=== PATIENT | male | born 1980 | race Caucasian/White ===

== ENCOUNTER 2019-02-04 01:32 | Emergency (ER) | payer SELFPAY ==
[~2019-02-04] VITALS: Ht 190.5 cm; Wt 90.7 kg
[2019-02-04 01:44] VITALS: BP 132/98
--- NOTE | 2019-02-04 01:52 | PHYS DOC ---
Past History Past Medical History: No Pertinent History Past Surgical History: No Surgical History Alcohol Use: Heavy Drug Use: None Adult General Chief Complaint Chief Complaint: [facility] HPI 38-year-old male presents with right clavicle pain and deformity. The patient states that he fell 2 days ago and now has a deformity on the right side. He admits that he has broken the spine in the past, but that it is healed. He admits that when he fell he had been drinking and does not really remember exactly what happened. He is not sure what he fell against. Patient also has pamela e conjunctival hemorrhage of the left eye and a black eye. He believes that he hit the upper outer portion of his eye on a piece of wood from the same fall. He denies assault. He walked to the emergency room from another location. He denies visual disturbance. He denies headache. He has no other complaints. Review of Systems Review of Systems Constitutional: Denies fever or chills [] Eyes: Denies change in visual acuity, redness, or eye pain [] HENT: Denies nasal congestion or sore throat [] Respiratory: Denies cough or shortness of breath [] Cardiovascular: No additional information not addressed in HPI [] GI: Denies abdominal pain, nausea, vomiting, bloody stools or diarrhea [] : Denies dysuria or hematuria [] Musculoskeletal: Right clavicle pain and deformity [] Integument: Denies rash or skin lesions [] Neurologic: Denies headache, focal weakness or sensory changes [] Endocrine: Denies polyuria or polydipsia [] All other systems were reviewed and found to be within normal limits, except as documented in this note. Allergies Allergies Allergies Coded Allergies Type Severity Reaction Last Updated Verified No Known Drug Allergies 01/01/15 No Physical Exam Physical Exam Constitutional: Well developed, well nourished, no acute distress, non-toxic appearance. [] HENT: Normocephalic, bilateral external ears normal, oropharynx moist, no oral exudates, nose normal. [] Eyes: PERRLA, EOMI, conjunctiva hemorrhage left eye with periorbital ecchymosis, no discharge. [] Neck: Normal range of motion, no tenderness, supple, no stridor. [] Cardiovascular:Heart rate regular rhythm, no murmur [] Lungs & Thorax: Bilateral breath sounds clear to auscultation. Prominence and obvious deformity of the right clavicle. [] Abdomen: Bowel sounds normal, soft, no tenderness, no masses, no pulsatile masses. [] Skin: Warm, dry, no erythema, no rash. [] Back: No tenderness, no CVA tenderness. [] Extremities: No tenderness, no cyanosis, no clubbing, ROM intact, no edema. [] Neurologic: Alert and oriented X 3, normal motor function, normal sensory function, no focal deficits noted. [] Psychologic: Affect normal, judgement normal, mood normal. [] Current Patient Data Vital Signs Vital Signs Date Time Temp Pulse Resp B/P (MAP) Pulse Ox O2 Delivery O2 Flow Rate FiO2 02/04/19 01:44 98.3 118 20 95 Room Air EKG EKG [] Radiology/Procedures Radiology/Procedures [] Impressions: Facial bones 3 views. HISTORY: Fall, bruising and swelling around left eye 3 views were taken of the facial bones. There is a calcific density in the frontal sinus on the right possible osteoma. Frontal sinuses are otherwise clear. Maxillary and ethmoid sinuses appear clear. There is a possible fracture the zygomatic arch on the left. I do not see other evidence of a facial or orbital fracture. Nasal bone appears intact on the lateral view. IMPRESSION: 1. 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 2. Possible fracture left zygomatic arch. 3. No other facial fracture noted. Electronically signed by: Bolivar Pratt MD (02/04/2019 2:27 AM) [facility] DICTATED AND SIGNED BY: BOLIVAR PRATT MD DATE: 02/04/19226 CC: ARNIE ALTAMIRANO DO; PCP,NO ~ Right clavicle 2 views. HISTORY: Fall 2 days ago, deformity 2 views were taken of the right clavicle. There is a fracture the mid to distal clavicle. There is however callus formation in the soft tissues suggesting a subacute fracture. An acute fracture superimposed on a subacute fracture is possible. Clavicle was normal on old study from December 2014. IMPRESSION: 1. Fracture right clavicle. Electronically signed by: Bolivar Pratt MD (02/04/2019 2:24 AM) [facility] DICTATED AND SIGNED BY: BOLIVAR PRATT MD DATE: 02/04/19223 CC: ARNIE ALTAMIRANO DO; PCP,NO ~ Course & Med Decision Making Course & Med Decision Making Pertinent Labs and Imaging studies reviewed. (See chart for details) The patient does have a right clavicle fracture, but it appears to be possibly subacute. See official read for more details. The patient also has a possible left zygomatic arch fracture. This does not appear to be grossly displaced. No other facial fracture was identified. Again see official report for more details. We'll place the patient in a simple sling and I will give him referral for orthopedics. The patient has also requested information for addiction counseling for his alcohol consumption. We will provide him with some information. He is stable for discharge at this time. [] Dragon Disclaimer Dragon Disclaimer This electronic medical record was generated, in whole or in part, using a voice recognition dictation system. Departure Departure: Impression: Primary Impression: Closed right clavicular fracture Additional Impressions: Zygomatic arch fracture Alcoholism /alcohol abuse Disposition: HOME, SELF-CARE Condition: STABLE Referrals: PCP,NO (PCP) Patient Instructions: Clavicle Fracture (Distal End) with [facility] Additional Instructions: Please follow-up with [facility] to discuss treatment for your clavicle fracture. You can call them at [phone] to make an appointment. Problem Qualifiers Primary Impression: Closed right clavicular fracture Encounter type: initial encounter Clavicle location: lateral end Fracture alignment: nondisplaced Qualified Codes: S42.034A - Nondisplaced fracture of lateral end of right clavicle, initial encounter for closed fracture Additional Impressions: Zygomatic arch fracture Encounter type: initial encounter Fracture type: closed Laterality: left Qualified Codes: S02.40FA - Zygomatic fracture, left side, initial encounter for closed fracture ARNIE ALTAMIRANO DO February 04, 2019 01:52
--- NOTE | 2019-02-04 02:27 | RAD ---
Right clavicle 2 views. HISTORY: Fall 2 days ago, deformity 2 views were taken of the right clavicle. There is a fracture the mid to distal clavicle. There is however callus formation in the soft tissues suggesting a subacute fracture. An acute fracture superimposed on a subacute fracture is possible. Clavicle was normal on old study from December 2014. IMPRESSION: 1. Fracture right clavicle. Electronically signed by: Silverio Doyle MD (02/04/2019 2:24 AM) [facility]
--- NOTE | 2019-02-04 02:30 | RAD ---
Facial bones 3 views. HISTORY: Fall, bruising and swelling around left eye 3 views were taken of the facial bones. There is a calcific density in the frontal sinus on the right possible osteoma. Frontal sinuses are otherwise clear. Maxillary and ethmoid sinuses appear clear. There is a possible fracture the zygomatic arch on the left. I do not see other evidence of a facial or orbital fracture. Nasal bone appears intact on the lateral view. IMPRESSION: 1. 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 2. Possible fracture left zygomatic arch. 3. No other facial fracture noted. Electronically signed by: Silverio Doyle MD (02/04/2019 2:27 AM) [facility]
[2019-02-04] MEDS ORDERED: IBUPROFEN 800 MG TABLET. PO ONE (03:11)
[2019-02-04] MEDS ORDERED: NAPROXEN 500 MG TABLET PO ONE (03:15)
== END 2019-02-04 03:16 | disposition home or self-care (01) ==
LOC: ER 01:32
DX: S42.034A Nondisplaced fracture of lateral end of right clavicle, initial encounter for closed fracture (principal); S02.40FA Zygomatic fracture, left side, initial encounter for closed fracture; F10.20 Alcohol dependence, uncomplicated; Y90.9 Presence of alcohol in blood, level not specified; W18.39XA Other fall on same level, initial encounter; Y93.89 Activity, other specified; Y92.89 Other specified places as the place of occurrence of the external cause; Y99.8 Other external cause status
CPT/HCPCS: 70150; 73000; 99284

== ENCOUNTER 2021-06-13 16:36 | Emergency (ER) | payer SELFPAY ==
[~2021-06-13] VITALS: Ht 190.5 cm; Wt 73.7 kg
[2021-06-13] MEDS ORDERED: IOHEXOL 300 MG/ML 75 ML VIAL. IV ONE (18:00)
--- NOTE | 2021-06-13 18:01 | PHYS DOC ---
Past History Past Medical History: No Pertinent History (MIRNA VILLANUEVA APRN) Past Surgical History: No Surgical History (MIRNA VILLANUEVA APRN) Alcohol Use: Heavy Additional Alcohol Information: pt states he drinks 4 beers daily Drug Use: None (MIRNA VILLANUEVA APRN) General Adult EDM: Chief Complaint: DIFFICULTY SWALLOWING HPI: HPI: Patient is a 40-year-old male who presents with difficulty swallowing. Patient states for the last 3 weeks he feels like he has a hard time swallowing food and feels like things are stuck in his throat. Patient also reports his voice has changed. "My voice feels deeper and scratchy". Denies fever,.denies recent illness. Patient is a smoker. Denies medical history. (MIRNA VILLANUEVA APRN) Review of Systems: Review of Systems: ROS At least 10 ROS systems have been reviewed and are negative except as documented in the HPI. General: Negative except as outlined in HPI above. Skin: Negative except as outlined in HPI above. HEENT: Negative except as outlined in HPI above. Neck: Negative except as outlined in HPI above. Respiratory: Negative except as outlined in HPI above.. Cardiovascular: Negative except as outlined in HPI above. Abdomen: Negative except as outlined in HPI above. : Negative except as outlined in HPI above. Back/MSK: Negative except as outlined in HPI above. Neuro: Negative except as outlined in HPI above. Psych: Negative except as outlined in HPI above. (MIRNA VILLANUEVA APRN) Allergies: Allergies: Allergies Coded Allergies Type Severity Reaction Last Updated Verified No Known Drug Allergies 01/01/15 No (MIRNA VILLANUEVA APRN) Physical Exam: PE: Constitutional: Well developed, well nourished, no acute distress, non-toxic appearance. [] HENT: Normocephalic, atraumatic, bilateral external ears normal, oropharynx moist, no oral exudates, oropharynx is red Eyes: PERRLA, EOMI, conjunctiva normal, no discharge. [] Neck: Normal range of motion, no tenderness, supple, no stridor. [] Cardiovascular:Heart rate regular rhythm, no murmur [] Lungs & Thorax: Bilateral breath sounds clear to auscultation [] Abdomen: Bowel sounds normal, soft, no tenderness, no masses, no pulsatile masses. [] Skin: Warm, dry, no erythema, no rash. [] Back: No tenderness, no CVA tenderness. [] Extremities: No tenderness, no cyanosis, no clubbing, ROM intact, no edema. [] Neurologic: Alert and oriented X 3, normal motor function, normal sensory function, no focal deficits noted. [] Psychologic: Affect normal, judgement normal, mood normal. [] (MIRNA VILLANUEVA APRN) Current Patient Data: Vital Signs: Vital Signs Date Time Temp Pulse Resp B/P (MAP) Pulse Ox O2 Delivery O2 Flow Rate FiO2 06/13/21 16:45 97.9 102 20 142/93 (109) 97 Room Air (MIRNA VILLANUEVA APRN) EKG: EKG: [] (MIRNA VILLANUEVA APRN) Radiology/Procedures: Radiology/Procedures: []Exam: CT neck with contrast INDICATION: Feels like something stuck in throat TECHNIQUE: Sequential axial images through the neck obtained following the administration of 75 mL of Omni 300 IV contrast. Sagittal and coronal reformatted images were reconstructed from the axial data and reviewed. Exposure: One or more of the following in the visualized dose reduction techniques were utilized for this examination: 1. Automated exposure control 2. Adjustment of the MA and/or KV according to patient size 3. Use of iterative of reconstructive technique Comparisons: Neck FINDINGS: Visualized intracranial structures are unremarkable. Visualized portions of the paranasal sinuses and mastoid air cells are pneumatized. Cervical vasculature is patent. Mild thickening of the epiglottis is noted. Nasopharynx, hypopharynx and larynx are unremarkable. No abnormal fluid collection identified. No enlarged lymph nodes. Thyroid and sacroiliac joints are within normal limits. Visualized lung apices are clear. No suspicious osseous lesions or acute fractures. IMPRESSION: Mild thickening of the epiglottis which is nonspecific can be infectious or inflammatory in etiology. Correlate with symptomatology. Recommend direct visualization if symptoms persist. Electronically signed by: Raisa Duarte MD (06/13/2021 6:30 PM) [facility] (MIRNA VILLANUEVA APRN) Heart Score: C/O Chest Pain: No Risk Factors: Risk Factors: DM, Current or recent (<one month) smoker, HTN, HLP, family history of CAD, obesity. Risk Scores: Score 0 - 3: 2.5% MACE over next 6 weeks - Discharge Home Score 4 - 6: 20.3% MACE over next 6 weeks - Admit for Clinical Observation Score 7 - 10: 72.7% MACE over next 6 weeks - Early Invasive Strategies (MIRNA VILLANUEVA APRN) Course & Med Decision Making: Course & Med Decision Making Pertinent Labs and Imaging studies reviewed. (See chart for details) [] 40-year-old male presents with difficulty swallowing for 3 weeks. Patient also noticed voice change. Patient is able to manage his own secretions. Upon physical exam oropharynx is red. No oral exudates noted. Patient is afebrile. Denies recent illness. Rapid strep ordered. CT of the neck shows mild thickening of the epiglottis which is nonspecific can be infectious or inflammatory in etiology. Patient is hemodynamically stable. No signs of respiratory distress. Symptoms started 3 weeks ago. Patient needs to follow-up with his PCP for further evaluation and management. Patient given dexamethasone to help with sore throat. Instructed him to go salt water gargl es. (MIRNA VILLANUEVA APRN) Dragon Disclaimer: Dragon Disclaimer: This electronic medical record was generated, in whole or in part, using a voice recognition dictation system. (MIRNA VILLANUEVA APRN) Attending Co-Sign The patient was seen and interviewed as well as examined at the bedside. The chart was reviewed. The case was discussed. Agree with the plan of care. (ARNIE ALTAMIRANO DO) Departure Departure: Impression: Primary Impression: Sore throat Disposition: 01 HOME / SELF CARE / HOMELESS Condition: STABLE Referrals: PCP,NO (PCP) Patient Instructions: Sore Throat, [id number] Additional Instructions: EMERGENCY DEPARTMENT GENERAL DISCHARGE INSTRUCTIONS Thank you for coming to [facility] (ED) today and trusting us with you care. We trust that you had a positivie experience in our Emergency Department. If you wish to speak to the department management, you may call the director at [phone]. YOUR FOLLOW UP INSTRUCTIONS ARE FOLLOWS: 1. Do you have a private Doctor? If you do not have a private doctor, please ask for a resource list of physicians or clinics that may be able to assist you with follow up care. 2. The Emergency Physician has interpreted your x-rays. The X-Ray specialist will also review them. If there is a change in the findings, you will be notified in 48 hours when at all possible. 3. A lab test or culture has been done, your results will be reviewed and you will be notified if you need a change in treatment. ADDITIONAL INSTRUCTIONS AND INFORMATION: 1. Your care today has been supervised by a physician who is specially trained in emergency care. Many problems require more than one evaluation for a complete diagnosis and treatment. We recommend that you schedule your follow up appointment as recommended to ensure complete treatment of you illness or injury. If you are unable to obtain follow up care and continue to have a problem, or if your condition worsens, we recommend that you return to the ED. 2. We are not able to safely determine your condition over the phone nor are we able to give sound medical advice over the phone. For these safety reasons, if you call for medical advice we will ask you to come to the ED for further evaluation. 3. If you have any questions regarding these discharge instructions please call the ED at [phone]. SAFETY INFORMATION: In the interest of safety, wellness, and injury prevention; we encourage you to wear your sealbelt, if you smoke; quite smoking, and we encourage family to use a prote ctive helmet for bicycling and other sporting events that present an increased risk for head injury. IF YOUR SYMPTOMS WORSEN OR NEW SYMPTOMS DEVELOP, OR YOU HAVE CONCERNS ABOUT YOUR CONDITION; OR IF YOUR CONDITION WORSENS WHILE YOU ARE WAITING FOR YOUR FOLLOW UP APPOINTMENT; EITHER CONTACT YOUR PRIMARY CARE DOCTOR, THE PHYSICIAN WHOSE NAME AND NUMBER YOU WERE GIVEN, OR RETURN TO THE ED IMMEDIATELY. MIRNA VILLANUEVA APRN Jun 13, 2021 18:00 ARNIE ALTAMIRANO DO Jun 14, 2021 06:21
--- NOTE | 2021-06-13 18:32 | RAD ---
Exam: CT neck with contrast INDICATION: Feels like something stuck in throat TECHNIQUE: Sequential axial images through the neck obtained following the administration of 75 mL of Omni 300 IV contrast. Sagittal and coronal reformatted images were reconstructed from the axial data and reviewed. Exposure: One or more of the following in the visualized dose reduction techniques were utilized for this examination: 1. Automated exposure control 2. Adjustment of the MA and/or KV according to patient size 3. Use of iterative of reconstructive technique Comparisons: Neck FINDINGS: Visualized intracranial structures are unremarkable. Visualized portions of the paranasal sinuses and mastoid air cells are pneumatized. Cervical vasculature is patent. Mild thickening of the epiglottis is noted. Nasopharynx, hypopharynx and larynx are unremarkable. No abnormal fluid collection identified. No enlarged lymph nodes. Thyroid and sacroiliac joints are within normal limits. Visualized lung apices are clear. No suspicious osseous lesions or acute fractures. IMPRESSION: Mild thickening of the epiglottis which is nonspecific can be infectious or inflammatory in etiology. Correlate with symptomatology. Recommend direct visualization if symptoms persist. Electronically signed by: Raisa Duarte MD (06/13/2021 6:30 PM) [facility]
[2021-06-13 18:43] LABS: CALCIUM 8.5 mg/dL (8.5-10.1); CREATININE 0.5 mg/dL (0.7-1.3); GFR 183.2
[2021-06-13 18:44] LABS: POTASSIUM 2.9 mmol/L (3.5-5.1)
[2021-06-13 18:48] LABS: BASO % 1 % (0-3); EOS % 0 % (0-3); HEMATOCRIT 42.4 % (39.0-53.0); HEMOGLOBIN 14.3 g/dL (13.0-17.5); LYMPH # 1.7 x10^3/uL (1.0-4.8); LYMPH % 28 % (24-48); MEAN CORPUSCULAR HEMOGLOBIN 34 pg (25-35); MEAN CORPUSCULAR HGB CONC 34 g/dL (31-37); MEAN CORPUSCULAR VOLUME 100 fL (79-100); MONO # 0.5 x10^3/uL (0.0-1.1); MONO % 8 % (0-9); NEUT # 3.9 x10^3uL (1.8-7.7); NEUT % 63 % (31-73); RED BLOOD COUNT 4.25 x10^6/uL (4.30-5.70); RED CELL DISTRIBUTION WIDTH 13.1 % (11.5-14.5); WHITE BLOOD COUNT 6.1 x10^3/uL (4.0-11.0)
[2021-06-13 20:12] LABS: PLATELET CLUMP PRESENT; PLT ESTIMATE ADEQUATE (ADEQUATE)
[2021-06-13 20:14] LABS: PLATELET COUNT 53 x10^3/uL (140-400)
[2021-06-13] MEDS ORDERED: DEXAMETHASONE SOD PHOS 10 MG/ML VIAL. IVP ONE (20:15)
[2021-06-13] MEDS ORDERED: POTASSIUM CHLORIDE 20 MEQ TABLET.ER. PO ONE (20:15)
[2021-06-13 20:41] VITALS: BP 139/97
== END 2021-06-13 20:45 | disposition home or self-care (01) ==
LOC: ER 16:36
DX: J02.9 Acute pharyngitis, unspecified (principal)
CPT/HCPCS: 36415; 70491; 80048; 85025; 87070; 87880; 96374; 99285; J1100; Q9967

== ENCOUNTER 2021-09-22 15:34 | Emergency (ER) | payer SELFPAY ==
[~2021-09-22] VITALS: Ht 190.5 cm; Wt 73.7 kg
[2021-09-22] MEDS ORDERED: IV NORMAL SALINE 1,000ML 1,000 ML IV ONE (17:00)
[2021-09-22] MEDS ORDERED: IOHEXOL 300 MG/ML 75 ML VIAL. IV ONE (17:15)
[2021-09-22] MEDS ORDERED: DEXAMETHASONE SOD PHOS 10 MG/ML VIAL. IVP ONE (17:15)
[2021-09-22] MEDS ORDERED: CONTRAST GIVEN. MC PRN (17:15)
[2021-09-22 17:38] LABS: BASO % 0 % (0-3); EOS % 0 % (0-3); HEMATOCRIT 40.7 % (39.0-53.0); HEMOGLOBIN 13.7 g/dL (13.0-17.5); LYMPH % 14 % (24-48); MEAN CORPUSCULAR HEMOGLOBIN 33 pg (25-35); MEAN CORPUSCULAR HGB CONC 34 g/dL (31-37); MEAN CORPUSCULAR VOLUME 97 fL (79-100); MONO # 0.7 x10^3/uL (0.0-1.1); MONO % 10 % (0-9); NEUT # 5.7 x10^3uL (1.8-7.7); NEUT % 76 % (31-73); PLATELET COUNT 106 x10^3/uL (140-400); RED BLOOD COUNT 4.18 x10^6/uL (4.30-5.70); WHITE BLOOD COUNT 7.5 x10^3/uL (4.0-11.0)
[2021-09-22 17:50] LABS: ALBUMIN/GLOBULIN RATIO 0.6 (1.0-1.7); CALCIUM 8.6 mg/dL (8.5-10.1); CREATININE 0.6 mg/dL (0.7-1.3); TOTAL PROTEIN 8.1 g/dL (6.4-8.2)
[2021-09-22 17:51] LABS: GFR 147.8; TOTAL BILIRUBIN 0.2 mg/dL (0.2-1.0)
[2021-09-22 17:55] LABS: POTASSIUM 2.7 mmol/L (3.5-5.1)
[2021-09-22] MEDS ORDERED: POTASSIUM CHLORIDE 20 MEQ TABLET.ER. PO ONE ×2 (18:00→19:00)
[2021-09-22 18:17] LABS: INFLUENZA A PATIENT NEGATIVE (NEGATIVE); INFLUENZA B PATIENT NEGATIVE (NEGATIVE)
--- NOTE | 2021-09-22 18:19 | RAD ---
Exam: CT neck with contrast INDICATION: Sore throat, swollen TECHNIQUE: Sequential axial images through the neck obtained following the administration of 75 mL of Omni 300 IV contrast. Sagittal and coronal reformatted images were reconstructed from the axial data and reviewed. Exposure: One or more of the following in the visualized dose reduction techniques were utilized for this examination: 1. Automated exposure control 2. Adjustment of the MA and/or KV according to patient size 3. Use of iterative of reconstructive technique Comparisons: 06/13/2021 FINDINGS: Visualized cranial structures are unremarkable. Visualized portions of paranasal sinuses and mastoid air cells are well-pneumatized. Cervical vasculature is patent. There is asymmetric irregular wall thickening involving the hypopharynx at the level of the vocal cor ds. The oropharynx and nasopharynx are unremarkable. Thyroid and salivary glands are within normal limits. No enlarged cervical lymph nodes are identified. No suspicious osseous lesions or acute fractures. IMPRESSION: Irregular wall thickening involving the hypopharynx. Findings could relate to pharyngitis. Direct vis ualization posttreatment to ensure no underlying neoplasm is recommended. Electronically signed by: Raisa Duarte MD (09/22/2021 6:17 PM) [facility]
--- NOTE | 2021-09-22 18:48 | PHYS DOC ---
Past History Past Medical History: No Pertinent History (JACY DAVIS SPARE FIXER) Past Surgical History: No Surgical History (JACY DAVIS SPARE FIXER) Alcohol Use: None Drug Use: None (JACY DAVIS APRN) Adult General Chief Complaint Chief Complaint: COUGH HPI HPI Patient is a 41-year-old male patient presenting to the ED today complaining of sore throat, cough and a headache intermittently for 90 days. Patient states his sore throat is getting worse. He states he is unvaccinated against COVID- 19. (JACY DAVIS SPARE FIXER) Review of Systems Review of Systems Constitutional: Denies fever or chills [] Eyes: Denies change in visual acuity, redness, or eye pain [] HENT: Reports sore throat Respiratory: Reports cough, denies shortness of breath [] Cardiovascular: No additional information not addressed in HPI [] GI: Denies abdominal pain, nausea, vomiting, bloody stools or diarrhea [] : Denies dysuria or hematuria [] Musculoskeletal: Denies back pain or joint pain [] Integument: Denies rash or skin lesions [] Neurologic: Reports headache, denies focal weakness or sensory changes [] All other systems were reviewed and found to be within normal limits, except as documented in this note. (JACY DAVIS SPARE FIXER) Current Medications Current Medications Current Medications Medications (Trade) Dose Ordered Sig/Moises Start Time Stop Time Status Last Admin Dose Admin Dexamethasone Sodium Phosphate (Decadron) 10 mg 1X ONCE 09/22/21 17:15 09/22/21 17:16 DC 09/22/21 17:28 10 MG Info (Do NOT chart on this entry -- for MONITORING) 1 each PRN DAILY PRN 09/22/21 17:15 09/24/21 17:14 Iohexol (Omnipaque 300 Mg/ml) 75 ml 1X ONCE 09/22/21 17:15 09/22/21 17:16 DC 09/22/21 17:23 75 ML Potassium Chloride (Klor-Con) 40 meq 1X ONCE 09/22/21 18:00 09/22/21 18:01 DC 09/22/21 18:00 40 MEQ Sodium Chloride 1,000 ml @ 1,000 mls/hr 1X ONCE 09/22/21 17:00 09/22/21 17:59 DC 09/22/21 17:28 1,000 MLS/HR (JACY DAVIS SPARE FIXER) Allergies Allergies Allergies Coded Allergies Type Severity Reaction Last Updated Verified No Known Drug Allergies 01/01/15 No (JACY DAVIS SPARE FIXER) Physical Exam Physical Exam Constitutional: Well developed, well nourished, no acute distress, non-toxic appearance. [] HENT: Normocephalic, atraumatic, bilateral external ears normal, oropharynx moist, no oral exudates, nose normal. [] Airway is open. Midline uvula, posterior pharynx with mild erythema. Eyes: PERRLA, EOMI, conjunctiva normal, no discharge. [] Neck: Normal range of motion, no tenderness, supple, no stridor. [] Cardiovascular:Heart rate regular rhythm, no murmur [] Lungs & Thorax: Bilateral breath sounds clear to auscultation [] Abdomen: Bowel sounds normal, soft, no tenderness, no masses, no pulsatile masses. [] Skin: Warm, dry, no erythema, no rash. [] Back: No tenderness, no CVA tenderness. [] Extremities: No tenderness, no cyanosis, no clubbing, ROM intact, no edema. [] Neurologic: Alert and oriented X 3, normal motor function, normal sensory function, no focal deficits noted. Cranial nerves II through XII intact Psychologic: Affect normal, judgement normal, mood normal. [] (JACY DAVIS SPARE FIXER) Current Patient Data Vital Signs Vital Signs Date Time Temp Pulse Resp B/P (MAP) Pulse Ox O2 Delivery O2 Flow Rate FiO2 09/22/21 18:11 98.5 103 16 140/80 (100) 97 Lab Results Laboratory Tests Test 09/22/21 17:20 09/22/21 17:30 White Blood Count 7.5 x10^3/uL (4.0-11.0) Red Blood Count 4.18 x10^6/uL (4.30-5.70) L Hemoglobin 13.7 g/dL (13.0-17.5) Hematocrit 40.7 % (39.0-53.0) Mean Corpuscular Volume 97 fL (79-100) Mean Corpuscular Hemoglobin 33 pg (25-35) Mean Corpuscular Hemoglobin Concent 34 g/dL (31-37) Red Cell Distribution Width 13.0 % (11.5-14.5) Platelet Count 106 x10^3/uL (140-400) L Neutrophils (%) (Auto) 76 % (31-73) H Lymphocytes (%) (Auto) 14 % (24-48) L Monocytes (%) (Auto) 10 % (0-9) H Eosinophils (%) (Auto) 0 % (0-3) Basophils (%) (Auto) 0 % (0-3) Neutrophils # (Auto) 5.7 x10^3uL (1.8-7.7) Lymphocytes # (Auto) 1.0 x10^3/uL (1.0-4.8) Monocytes # (Auto) 0.7 x10^3/uL (0.0-1.1) Eosinophils # (Auto) 0.0 x10^3/uL (0.0-0.7) Basophils # (Auto) 0.0 x10^3/uL (0.0-0.2) Sodium Level 139 mmol/L (136-145) Potassium Level 2.7 mmol/L (3.5-5.1) *L Chloride Level 100 mmol/L (98-107) Carbon Dioxide Level 28 mmol/L (21-32) Anion Gap 11 (6-14) Blood Urea Nitrogen 6 mg/dL (8-26) L Creatinine 0.6 mg/dL (0.7-1.3) L Estimated GFR (Cockcroft-Gault) 147.8 BUN/Creatinine Ratio 10 (6-20) Glucose Level 83 mg/dL (70-99) Calcium Level 8.6 mg/dL (8.5-10.1) Total Bilirubin 0.2 mg/dL (0.2-1.0) Aspartate Amino Transferase (AST) 113 U/L (15-37) H Alanine Aminotransferase (ALT) 58 U/L (16-63) Alkaline Phosphatase 60 U/L (46-116) Total Protein 8.1 g/dL (6.4-8.2) Albumin 3.0 g/dL (3.4-5.0) L Albumin/Globulin Ratio 0.6 (1.0-1.7) L Influenza Type A (Rapid) Negative (NEGATIVE) Influenza Type B (Rapid) Negative (NEGATIVE) (JACY DAVIS APRN) EKG EKG [] (JACY DAVIS APRN) Radiology/Procedures Radiology/Procedures []PROCEDURE: CT SOFT TISSUE NECK W/CONTRAST Exam: CT neck with contrast INDICATION: Sore throat, swollen TECHNIQUE: Sequential axial images through the neck obtained following the administration of 75 mL of Omni 300 IV contrast. Sagittal and coronal reformatted images were reconstructed from the axial data and reviewed. Exposure: One or more of the following in the visualized dose reduction techniques were utilized for this examination: 1. Automated exposure control 2. Adjustment of the MA and/or KV according to patient size 3. Use of iterative of reconstructive technique Comparisons: 06/13/2021 FINDINGS: Visualized cranial structures are unremarkable. Visualized portions of paranasal sinuses and mastoid air cells are well-pneumatized. Cervical vasculature is patent. There is asymmetric irregular wall thickening involving the hypopharynx at the level of the vocal cords. The oropharynx and nasopharynx are unremarkable. Thyroid and salivary glands are within normal limits. No enlarged cervical lymph nodes are identified. No suspicious osseous lesions or acute fractures. IMPRESSION: Irregular wall thickening involving the hypopharynx. Findings could relate to pharyngitis. Direct visualization posttreatment to ensure no underlying neoplasm is recommended. Electronically signed by: Raisa Barrientos MD (09/22/2021 6:17 PM) [facility] DICTATED AND SIGNED BY: RAISA BARRIENTOS MD DATE: 09/22/211811 CC: JACY DAVIS APRN; PCP,NO ~MTH0 0 (JACY DAVIS APRN) Heart Score C/O Chest Pain: N/A Risk Factors: Risk Factors: DM, Current or recent (<one month) smoker, HTN, HLP, family history of CAD, obesity. Risk Scores: Risk Factors: DM, Current or recent (<one month) smoker, HTN, HLP, family history of CAD, obesity. (JACY DAVIS APRN) Course & Med Decision Making Course & Med Decision Making Pertinent Labs and Imaging studies reviewed. (See chart for details) This is a 41-year-old male patient presented to the ED today complaining of a sore throat headache and a cough that began 90 days ago. Patient is afebrile on arrival to the ED. Positive rapid COVID test. CBC with no acute findings, CMP with potassium of 2.7, patient was given 40 mEq of potassium x2 total of 8o mEq-[address] of the neck soft tissue noted for pharyngitis. Patient was given Decadron in the ED, was also given Rocephin IV. Discharged on amoxicillin. Tylenol or Motrin for pain or fever. Follow-up with PCP and ENT in 1 week if symptoms persist (JACY DAVIS APRN) Course & Med Decision Making Did not see or evaluate patient.. Did not discuss patient with SPRING COVERER. Agree with SPRING COVERER's work-up and disposition per note (EMILIA OATES MD) Dragon Disclaimer Dragon Disclaimer This electronic medical record was generated, in whole or in part, using a voice recognition dictation system. (JACY DAVIS APRN) Departure Departure: Impression: Primary Impression: Pharyngitis Additional Impressions: Lab test positive for detection of COVID-19 virus Hypokalemia Cough Disposition: HOME / SELF CARE / HOMELESS Condition: STABLE Referrals: PCP,NO (PCP) follow up in one week with your doctor Patient Instructions: Cough, Adult, [id number], Hypokalemia-Brief, Viral and Bacterial Pharyngitis Additional Instructions: You were evaluated in the emergency room and tested positive for COVID-19. Please quarantine yourself for 5 days. You also have pharyngitis. Take the prescribed antibiotics until completed. Your potassium was slightly low, increase your dietary potassium through foods like bananas. Scripts Prednisone (PREDNISONE) 50 Mg Tablet 1 TAB PO DAILY, #5 TAB Prov: JACY DAVIS APRN 09/22/21 Amoxicillin (AMOXICILLIN) 875 Mg Tablet 1 TAB PO BID, #20 TAB Prov: JACY DAVIS APRN 09/22/21 Problem Qualifiers Primary Impression: Pharyngitis Pharyngitis/tonsillitis etiology: unspecified etiology Qualified Codes: J02.9 - Acute pharyngitis, unspecified JACY DAVIS APRN Sep 22, 2021 18:48 EMILIA OATES MD Sep 22, 2021 21:03
[2021-09-22] MEDS ORDERED: PRED50TA PO (19:00)
[2021-09-22] MEDS ORDERED: AMOX875T PO (19:00)
[2021-09-22] MEDS ORDERED: cefTRIAXone SODIUM 1 GM VIAL ONE (19:15)
[2021-09-22] MEDS ORDERED: IV NORMAL SALINE 50ML 50 ML ONE (19:15)
[2021-09-22 19:45] VITALS: BP 148/76
== END 2021-09-22 19:45 | disposition home or self-care (01) ==
LOC: ER 15:34
DX: U07.1 COVID-19 (principal); E87.6 Hypokalemia
CPT/HCPCS: 70491; 80053; 85025; 87426; 87804; 96361; 96365; 96375; 99285; J0696; J1100; J7030; Q9967

== ENCOUNTER 2021-11-10 22:52 | Emergency (ER) | payer SELFPAY ==
[~2021-11-10] VITALS: Ht 190.5 cm; Wt 67.0 kg
[~2021-11-10 22:52] MED LIST: AMOX875T PO; PRED50TA PO
--- NOTE | 2021-11-10 23:21 | PHYS DOC ---
Past History Past Medical History: No Pertinent History Past Surgical History: No Surgical History Alcohol Use: None Drug Use: None General Adult EDM: Chief Complaint: HEMATEMESIS/VOMITING BLOOD HPI: HPI: 41-year-old male presents with concern for hemoptysis. The patient feels like he has something in his throat. He thinks there is swelling of his anterior neck. For the last 1 month, he has had discomfort and pain with swallowing. Is gotten worse the last few days. Today, the patient has been coughing up blood. He states he can feel it at the posterior of his mouth and then he can spit it up. He denies vomiting. He thinks he is coughing up the blood. He denies shortness of breath or chest pain. He has never had this before. The patient is a cigarette smoker for many years. He also drinks beer daily. Denies fever or chills. Review of Systems: Review of Systems: Constitutional: Denies fever or chills Eyes: Denies change in visual acuity HENT: Denies nasal congestion or sore throat Respiratory: Coughing up blood Cardiovascular: Denies chest pain or edema GI: Denies abdominal pain, nausea, vomiting, bloody stools or diarrhea : Denies dysuria Musculoskeletal: Denies back pain or joint pain Integument: Denies rash Neurologic: Denies headache, focal weakness or sensory changes Endocrine: Denies polyuria or polydipsia Lymphatic: Denies swollen glands Psychiatric: Denies depression or anxiety Current Medications: Current Meds: Current Medications Medications (Trade) Dose Ordered Sig/Moises Start Time Stop Time Status Last Admin Dose Admin Sodium Chloride 1,000 ml @ 1,000 mls/hr 1X ONCE 11/10/21 23:30 11/11/21 00:29 Allergies: Allergies: Allergies Coded Allergies Type Severity Reaction Last Updated Verified No Known Drug Allergies 01/01/15 No Physical Exam: PE: Constitutional: Well developed, well nourished, no acute distress, non-toxic appearance. [] HENT: Normocephalic, atraumatic, bilateral external ears normal, oropharynx with bright red blood, no obvious bleeding source, nose normal. [] Eyes: PERRLA, EOMI, conjunctiva normal, no discharge. [] Neck: Normal range of motion, prominent anterior cervical lymph nodes bilaterally [] Cardiovascular: Heart rate regular rhythm, no murmur [] Lungs & Thorax: Bilateral breath sounds clear to auscultation [] Abdomen: Bowel sounds normal, soft, no tenderness, no masses, no pulsatile masses. [] Skin: Warm, dry, no erythema, no rash. [] Back: No tenderness, no CVA tenderness. [] Extremities: No tenderness, no cyanosis, no clubbing, ROM intact, no edema. [] Neurologic: Alert and oriented X 3, normal motor function, normal sensory function, no focal deficits noted. [] Psychologic: Affect normal, judgement normal, mood normal. [] EKG: EKG: [] Radiology/Procedures: Radiology/Procedures: [] Impressions: EXAMINATION: CT NECK SOFT TISSUE WITH IV CONTRAST, 11/10/2021 11:55 AM CLINICAL INDICATION: Blood in posterior pharynx, palpable lymph nodes COMPARISON: CT soft tissue neck 06/13/2021 and 09/22/2021 TECHNIQUE: Helical CT imaging performed of the soft tissues neck after ad ministration of intravenous contrast. Sagittal and coronal reformats were obtained. One or more of the following individualized dose reduction techniques were utilized for this examination: 1. Automated exposure control 2. Adjustment of the mA and/or kV according to patient size 3. Use of iterative reconstruction technique. FINDINGS: The nasopharynx and oropharynx are unremarkable. There is increased irregular masslike thickened appearance of the epiglottis and aryepiglottic folds resulting in severe airway narrowing. The vocal folds are edematous in appearance. There are several abnormal right cervical chain lymph nodes that have increased in size and has developed an abnormal morphology since 09/22/2021. For example, a right level 2 lymph node now measures 1.5 x 1.1 cm, previously 1.1 x 0.6 cm, and has a more rounded appearance with some hyperdensity or calcification. Another hyperdense or partially calcified lymph node at the level of the hyoid bone on the right now measures 1.0 x 0.4 cm, previously 0.8 x 0.4 cm. Left cervical chain lymph nodes are unchanged. Parotid, submandibular, and thyroid glands are normal. The lung apices are clear. Cervical vessels are patent. This lies portion of the brain is unremarkable. There is an osteoma versus chronic inspissated secretions in the right frontal sinus. No acute osseous abnormality. IMPRESSION: Worsened, irregular thickened appearance of the epiglottis and aryepiglottic folds suspicious for underlying malignancy. There is severe airway narrowing in this region. The vocal folds are edematous. There are several right cervical chain lymph nodes that are increased in size and now have abnormal morphology, concerning for metastatic disease. Recommend ENT consultation. FOR INTERNAL CODING PURPOSES Critical result: Findings discussed with ARNIE ALTAMIRANO DO at 11/11/2021 1:13 AM. RESULT CODE: (C) Electronically signed by: Tonya Story MD (11/11/2021 1:15 AM) [facility] DICTATED AND SIGNED BY: TONYA STORY MD DATE: 11/11/2157 CC: ARNIE ALTAMIRANO DO; PCP,NO ~MTH0 0 Heart Score: C/O Chest Pain: N/A Risk Factors: Risk Factors: DM, Current or recent (<one month) smoker, HTN, HLP, family histo ry of CAD, obesity. Risk Scores: Score 0 - 3: 2.5% MACE over next 6 weeks - Discharge Home Score 4 - 6: 20.3% MACE over next 6 weeks - Admit for Clinical Observation Score 7 - 10: 72.7% MACE over next 6 weeks - Early Invasive Strategies Course & Med Decision Making: Course & Med Decision Making Pertinent Labs and Imaging studies reviewed. (See chart for details) The patient's labs are significant for mild anemia and a potassium of 2.5. I have ordered 80 mEq of potassium p.o. Patient is also gotten [address] scan shows worsening of the epiglottis and surrounding tissue concerning for malignancy. See official read for more details. I have made the patient aware of this finding. I have stressed the extreme importance of ENT consult as soon as possible. We will advise that he stop taking ibuprofen. The patient would prefer to be discharged and follow-up himself tomorrow. He understands that he needs to go to a large center with specialty services. He is stable for discharge at this time. [] Dragon Disclaimer: Dragon Disclaimer: This electronic medical record was generated, in whole or in part, using a voice recognition dictation system. Departure Departure: Impression: Primary Impression: Throat mass Additional Impressions: Hematemesis Hypokalemia Disposition: HOME / SELF CARE / HOMELESS Condition: STABLE Referrals: PCP,NO (PCP) Patient Instructions: Throat Cancer, Cancer of the Oropharynx ARNIE ALTAMIRANO DO Nov 10, 2021 23:21
[2021-11-10] MEDS ORDERED: IV NORMAL SALINE 1,000ML 1,000 ML IV ONE (23:30)
[2021-11-10] MEDS ORDERED: CONTRAST GIVEN. MC PRN (23:45)
[2021-11-10] MEDS ORDERED: IOHEXOL 300 MG/ML 75 ML VIAL. IV ONE (23:45)
[2021-11-10 23:48] LABS: BASO % 0 % (0-3); EOS % 0 % (0-3); HEMATOCRIT 37.5 % (39.0-53.0); HEMOGLOBIN 12.8 g/dL (13.0-17.5); LYMPH # 1.8 x10^3/uL (1.0-4.8); LYMPH % 21 % (24-48); MEAN CORPUSCULAR HEMOGLOBIN 34 pg (25-35); MEAN CORPUSCULAR HGB CONC 34 g/dL (31-37); MEAN CORPUSCULAR VOLUME 99 fL (79-100); MONO # 0.8 x10^3/uL (0.0-1.1); MONO % 10 % (0-9); NEUT # 5.7 x10^3uL (1.8-7.7); NEUT % 68 % (31-73); PLATELET COUNT 112 x10^3/uL (140-400); RED CELL DISTRIBUTION WIDTH 14.4 % (11.5-14.5); WHITE BLOOD COUNT 8.3 x10^3/uL (4.0-11.0)
[2021-11-11 00:04] LABS: ALBUMIN/GLOBULIN RATIO 0.6 (1.0-1.7); CALCIUM 8.7 mg/dL (8.5-10.1); CREATININE 0.6 mg/dL (0.7-1.3); GFR 147.8; TOTAL BILIRUBIN 0.3 mg/dL (0.2-1.0); TOTAL PROTEIN 8.1 g/dL (6.4-8.2)
[2021-11-11 00:12] LABS: POTASSIUM 2.5 mmol/L (3.5-5.1)
--- NOTE | 2021-11-11 00:25 | RAD ---
EXAM: XR CHEST 1V 11/10/2021 11:20 PM CLINICAL INDICATION: Cough COMPARISON: Chest radiograph 01/01/2015 TECHNIQUE: AP upright view of the chest FINDINGS: The heart and mediastinum are normal. Lungs are well-expanded and clear. No consolidatio n, pleural effusion, or pneumothorax. Pulmonary vascularity is normal. There are old right lateral t hird, fourth, and fifth rib fractures. IMPRESSION: No acute cardiopulmonary abnormality. Electronically signed by: Tonya Story MD (11/11/2021 12:23 AM) [facility]
[2021-11-11] MEDS ORDERED: POTASSIUM CHLORIDE 20 MEQ TABLET.ER. PO ONE ×2 (00:30→02:00)
[2021-11-11 00:52] VITALS: BP 114/76
--- NOTE | 2021-11-11 01:18 | RAD ---
EXAMINATION: CT NECK SOFT TISSUE WITH IV CONTRAST, 11/10/2021 11:55 AM CLINICAL INDICATION: Blood in posterior pharynx, palpable lymph nodes COMPARISON: CT soft tissue neck 06/13/2021 and 09/22/2021 TECHNIQUE: Helical CT imaging performed of the soft tissues neck after administration of intravenous contrast. Sagittal and coronal reformats were obtained. One or more of the following individualized dose reduction techniques were utilized for this examinat ion: 1. Automated exposure control 2. Adjustment of the mA and/or kV according to patient size 3. Use of iterative reconstruction technique. FINDINGS: The nasopharynx and oropharynx are unremarkable. There is increased irregular masslike thic kened appearance of the epiglottis and aryepiglottic folds resulting in severe airway narrowing. The vocal folds are edematous in appearance. There are several abnormal right cervical chain lymph nodes that have increased in size and has devel oped an abnormal morphology since 09/22/2021. For example, a right level 2 lymph node now measures 1.5 x 1.1 cm, previously 1.1 x 0.6 cm, and has a more rounded appearance with some hyperdensity or calcif ication. Another hyperdense or partially calcified lymph node at the level of the hyoid bone on the r ight now measures 1.0 x 0.4 cm, previously 0.8 x 0.4 cm. Left cervical chain lymph nodes are unchange d. Parotid, submandibular, and thyroid glands are normal. The lung apices are clear. Cervical vessels ar e patent. This lies portion of the brain is unremarkable. There is an osteoma versus chronic inspissa roberto carlos secretions in the right frontal sinus. No acute osseous abnormality. IMPRESSION: Worsened, irregular thickened appearance of the epiglottis and aryepiglottic folds suspic ious for underlying malignancy. There is severe airway narrowing in this region. The vocal folds are edematous. There are several right cervical chain lymph nodes that are increased in size and now have abnormal morphology, concerning for metastatic disease. Recommend ENT consultation. FOR INTERNAL CODING PURPOSES Critical result: Findings discussed with ARNIE ALTAMIRANO DO at 11/11/2021 1:13 AM. RESULT CODE: (C) Electronically signed by: Tonya Story MD (11/11/2021 1:15 AM) [facility]
[2021-11-11] MEDS ORDERED: ONDANSETRON PF 4 MG/2 ML VIAL. IVP ONE (01:30)
== END 2021-11-11 01:50 | disposition home or self-care (01) ==
LOC: ER 22:52
DX: E87.6 Hypokalemia (principal); K92.0 Hematemesis; J39.2 Other diseases of pharynx; F17.210 Nicotine dependence, cigarettes, uncomplicated
CPT/HCPCS: 36415; 70491; 71045; 80053; 85025; 96361; 96374; 99285; J2405; J7030